=== PATIENT | female | born 1940 | race Asian ===

== ENCOUNTER 2016-04-23 01:27 | Observation (INO) | payer MEDICARE, OTHER ==
--- NOTE | 2016-04-23 03:15 | ER Document Report ---
ED Cardiac - General Chief Complaint: Chest Pain Stated Complaint: CHEST PAIN Notes: The patient is a 76-year-old female, past medical history hypothyroidism, former smoker, presents with 2 hours of left-sided chest pressure that radiated into her left shoulder while she was at rest. She had this about 6 months ago that resolved after a baby aspirin. She took 162 mg aspirin at home earlier tonight and she is no longer having any chest pain. She has never received a stress test. Denies shortness of breath, numbness, tingling, back pain, leg swelling, fevers, cough, nausea, vomiting or abdominal pain. TRAVEL OUTSIDE OF THE [place] IN LAST 30 DAYS: No - Related Data Allergies/Adverse Reactions: acetaminophen [From Percocet] Allergy (Mild, Verified 10/13/14 09:25) Vomiting oxycodone HCl [From Percocet] Adverse Reaction (Mild, Verified 04/23/16 03:20) Vomiting Home Medications: Current Home Medications Levothyroxine Sodium [Synthroid 0.075 mg Tablet] 0.075 mg PO DAILY 04/23/16 [ History] Past Medical History - General Information source: Patient - Social History Smoking Status: Former Smoker Chew tobacco use (# tins/day): No Frequency of alcohol use: Occasional Drug Abuse: None Family History: Reviewed & Not Pertinent Patient has suicidal ideation: No Patient has homicidal ideation: No - Past Medical History Cardiac Medical History: Denies: Hx Coronary Artery Disease, Hx Heart Attack, Hx Hypertension Pulmonary Medical History: Denies: Hx Asthma, Hx Bronchitis, Hx COPD, Hx Pneumonia Neurological Medical History: Denies: Hx Cerebrovascular Accident, Hx Seizures Renal/ Medical History: Denies: Hx Peritoneal Dialysis Musculoskeltal Medical History: Denies Hx Arthritis - Immunizations Hx Diphtheria, Pertussis, Tetanus Vaccination: Yes Hx Pneumococcal Vaccination: 05/27/13 Review of Systems - Review of Systems Notes: REVIEW OF SYSTEMS: CONSTITUTIONAL: -fevers, -chills EENT: -eye pain, -difficulty swallowing, -nasal congestion CARDIOVASCULAR: +chest pain, -syncope. RESPIRATORY: -cough, -SOB GASTROINTESTINAL: -abdominal pain, - nausea, -vomiting, -diarrhea GENITOURINARY: -dysuria, -hematuria MUSCULOSKELETAL: -back pain, -neck pain SKIN: -rash or skin lesions. HEMATOLOGIC: -easy bruising or bleeding. LYMPHATIC: -swollen, enlarged glands. NEUROLOGICAL: -altered mental status or loss of consciousness, -headache, - neurologic symptoms PSYCHIATRIC: -anxiety, -depression. ALL OTHER SYSTEMS REVIEWED AND NEGATIVE. Physical Exam - Vital signs Vitals: Resp Pulse Ox 12 98 04/23/16 03:00 04/23/16 03:00 - Notes Notes: PHYSICAL EXAMINATION: GENERAL: Well-appearing, well-nourished and in no acute distress. HEAD: Atraumatic, normocephalic. EYES: Pupils equal round and reactive to light, extraocular movements intact, sclera anicteric, conjunctiva are normal. ENT: nares patent, oropharynx clear without exudates. Moist mucous membranes. NECK: Normal range of motion, supple without lymphadenopathy LUNGS: Breath sounds clear to auscultation bilaterally and equal. No wheezes rales or rhonchi. HEART: Regular rate and rhythm without murmurs ABDOMEN: Soft, nontender, normoactive bowel sounds. No guarding, no rebound. No masses appreciated. EXTREMITIES: Normal range of motion, no pitting or edema. No cyanosis. NEUROLOGICAL: Cranial nerves grossly intact. Normal speech, normal gait. Normal sensory, motor, and reflex exams. PSYCH: Normal mood, normal affect. SKIN: Warm, Dry, normal turgor, no rashes or lesions noted. Course - Re-evaluation Re-evalutation: Pt chest pain free. She already took aspirin at home prior to arrival. EKG does not show any signs of ischemia at this time. HEART score 5 (2 for age, 1 for risk factors, 2 for concerning story). Symptoms atypical for aortic dissection or PE. With elevated HEART score and no prior provocation studies, pt will require Observation for repeat troponins and further evaluation of her chest pain. 04/23/16 04:19 Pt's first troponin negative. Dr. Hunter will call back when he is ready for admission. 04/23/16 05:[address] Hunter and he has accepted the patient as Tele Obs. - Vital Signs Vital signs: Temp Pulse Resp BP Pulse Ox 11 L 127/59 H 98 04/23/16 05:01 04/23/16 05:01 04/23/16 05:01 - Laboratory Result Diagrams: 04/23/16 03:04 04/23/16 03:04 Laboratory results interpreted by me: 04/23/16 03:04 Chloride 108 H Glucose 119 H Calcium 10.9 H - Diagnostic Test Radiology reviewed: Image reviewed, Reports reviewed Radiology results interpreted by me: CXR: NAD - EKG Interpretation by Me EKG shows normal: Sinus rhythm, Intervals, QRS Complexes, ST-T Waves [employer]/QRS: Left axis deviation Voltage: Consistant with LVH Discharge - Discharge Clinical Impression: Chest pain Qualifiers: Chest pain type: unspecified Qualified Code(s): R07.9 - Chest pain, unspecified Condition: Stable Disposition: ADMITTED OBSERVATION Admitting Provider: [facility] Admitted: Telemetry
[2016-04-23 03:17] LABS: ABSOLUTE EOSINOPHILS # (AUTO) 0.2 10^3/uL (0.0-0.6); ABSOLUTE LYMPHOCYTES (AUTO) 1.9 10^3/uL (0.5-4.7); ABSOLUTE MONOCYTES (AUTO) 0.4 10^3/uL (0.1-1.4); ABSOLUTE NEUT (AUTO) 3.1 10^3/uL (1.7-8.2); BASOPHILS % (AUTO) 0.7 % (0-2); HEMATOCRIT 41.2 % (36.0-47.0); HEMOGLOBIN 14.2 g/dL (12.0-15.5); HGB HCT DIFFERENCE 1.4; LYMPHOCYTES % (AUTO) 34.1 % (13-45); MEAN CORPUSCULAR HEMOGLOBIN 32.5 pg (27.0-33.4); MEAN CORPUSCULAR HGB CONC 34.5 g/dL (32.0-36.0); MEAN CORPUSCULAR VOLUME 94 fl (80-97); MONOCYTES % (AUTO) 6.9 % (3-13); RED BLOOD COUNT 4.37 10^6/uL (3.72-5.28); RED CELL DISTRIBUTION WIDTH 12.7 % (11.5-14.0); SEGMENTED NEUTROPHILS % (AUTO) 55.3 % (42-78); WHITE BLOOD COUNT 5.5 10^3/uL (4.0-10.5)
[2016-04-23 03:52] LABS: ALANINE AMINOTRANSFERASE 42 U/L (9-52); ALBUMIN 4.2 g/dL (3.5-5.0); ALKALINE PHOSPHATASE 101 U/L (38-126); ANION GAP 12 (5-19); ASPARTATE AMINO TRANSFERASE 32 U/L (14-36); BILIRUBIN,TOTAL 0.5 mg/dL (0.2-1.3); BLOOD UREA NITROGEN 18 mg/dL (7-20); CALCIUM 10.9 mg/dL (8.4-10.2); CARBON DIOXIDE 23 mmol/L (22-30); CHLORIDE 108 mmol/L (98-107); CREATINE KINASE 80 U/L (30-135); CREATININE RESULT 0.55 mg/dL (0.52-1.25); GLUCOSE 119 mg/dL (75-110); POTASSIUM 4.7 mmol/L (3.6-5.0); SODIUM 142.8 mmol/L (137-145); TOTAL PROTEIN 7.1 g/dL (6.3-8.2)
[2016-04-23] MEDS ORDERED: PROMETHAZINE HCL INJ 25 MG/1 ML VIAL IV PRN (07:36)
[2016-04-23] MEDS ORDERED: ACETAMINOPHEN 325 MG TABLET PO PRN (09:03)
--- NOTE | 2016-04-23 09:08 | PDOC H&P ---
History of Present Illness Admission Date/PCP: 04/23/16 05:15 MARTHA ROBERTS MD Patient complains of: Chest pain History of Present Illness: MICKEY GRAHAM is a 76 year old [place] female with underlying hypothyroidism, but no personal or family history of coronary artery disease who presents to the emergency room for evaluation of above complaint. She describes the onset while walking about her house of approximately a two- hour episode of left-sided chest pressure that radiated into her left shoulder. Resolved after she took 2 baby aspirin. No associated symptoms such as nausea vomiting, diaphoresis, numbness, or shortness of breath. Similar somewhat milder episode 6 months ago that resolved after a single baby aspirin. Negative exercise treadmill study several years ago. No history of pulmonary embolus or DVT. No recent long trip with prolonged inactivity, or unusual lower extremity swelling or tenderness. Currently resting quietly, chest pain-free. Patient has been discussed with emergency room physician who evaluated the patient. . [facility] and are reviewed. X-ray summary results are listed below, with full report(s) reviewed. . EKG reviewed. 09/30/2014 Social history/personal habits: . Has children. 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 A rather physically and mentally active individual. No tobacco use since 1995. One glass of wine per day. No illicit drug use. Allergies/adverse reactions are listed in [facility] and are reviewed. Home medications are reviewed by discussion with patient and have been reconciled by nursing staff in [facility]. Home medications initially autopopulated into [facility] may not accurately reflect patient's true medications, dosages, and/or frequencies. REVIEW OF SYSTEMS: Constitutional: No fever or chills. Eyes: No current vision complaints. ENT: No swallowing problems or complaints. No hearing problems or complaints. Pulmonary: No current complaints. Cardiovascular: See history and present illness. Gastrointestinal: No current complaints, including nausea or vomiting. Skin: No current complaints, including rashes. Hematologic: No unusual easy bruising or bleeding. Neurologic: No current complaints, including numbness or tingling. Musculoskeletal: Occasional mild joint pain. No specific diagnosis of arthritis. Psychiatric: Mild occasional Anxiety depression; denies suicidal or homicidal ideation. Endocrine: No current complaints, including polyuria. Genitourinary: No current complaints, including dysuria. PHYSICAL EXAMINATION: Neither height nor weight nor temperature are recorded on the chart. Skin is normothermic. Pressure 126/62. Pulse 72 and regular. 99% saturation on room air. Respirations are 21 and unlabored. Female emergency room nurse Norma is present. Well-nourished well-developed elderly oriental female, appearing approximately her stated age. Pleasant awake alert and cooperative. No obvious distress other than perhaps mildly anxious. A rather stoic individual. Skin is warm and dry. No grossly obvious evidence of rash in areas of skin examined. No subcutaneous nodules palpated. ENT: Hearing grossly normal to normal conversation. Tongue midline on protrusion pink and slightly moist. Eyes: No scleral icterus. Pupils equal and reactive to light at 4 mm. [place] conjunctivae. Neck is supple and nontender to gentle active range of motion and palpation. Midline trachea. No palpable thyroid nodule mass enlargement or tenderness. Lymphatic: No palpable cervical or clavicular nodes. Neck and lymphatic exams limited by patient body habitus. Psychiatric: Reasonable insight into acute and chronic medical issues. Oriented to time location and why here. Lungs: Auscultation reveals clear and equal breath sounds bilaterally. No use of accessory respiratory muscles. Cardiovascular: Heart regular rate and rhythm, without gallop murmur or rub. No carotid or abdominal aortic bruits. No ankle or pedal edema. Faintly palpable dorsalis pedis pulses. Abdomen: soft, , slightly distended nontender with positive bowel sounds. Unable to adequately evaluate abdomen for masses or organomegaly due to distention. Compression of neither her upper abdomen nor her sternum reproduces her previously noted chest discomfort. Extremities: Feet are warm and dry. No calf tenderness to compression. No grossly obvious visual evidence of calf swelling. Gentle manipulation of lower extremities fails to reveal any obvious evidence of injury or instability to knees hips or ankles. Neurologic: Moves upper extremities grossly normally. Patellar reflexes absent. Absent Babinski. Light touch is intact at feet. Dorsiflexion and plantarflexion of feet 5 / 5 and symmetric. Past Medical History Cardiac Medical History: Denies: Coronary Artery Disease, Myocardial Infarction, Hypertension Pulmonary Medical History: Denies: Asthma, Bronchitis, Chronic Obstructive Pulmonary Disease (COPD), Pneumonia Neurological Medical History: Denies: Seizures Musculoskeltal Medical History: Denies: Arthritis Hematology: Denies: Anemia Past Surgical History Past Surgical History: Reports: Appendectomy, Tubal Ligation Social History Information Source: Patient, Emergency Med Personnel, [facility] Records Lives with: Spouse/Significant other Smoking Status: Former Smoker Frequency of Alcohol Use: Social Drugs: None - Advance Directive Resuscitation Status: Full Code Surrogate healthcare decision maker:: Family History Family History: Reviewed & Not Pertinent Parental Family History Reviewed: Yes Children Family History Reviewed: Yes Sibling(s) Family History Reviewed.: Yes Medication/Allergy Home Medications: Levothyroxine Sodium [Synthroid 0.075 mg Tablet] 0.075 mg PO DAILY 04/23/16 Allergies/Adverse Reactions: acetaminophen [From Percocet] Allergy (Mild, Verified 10/13/14 09:25) Vomiting oxycodone HCl [From Percocet] Adverse Reaction (Mild, Verified 04/23/16 03:20) Vomiting Physical Exam Vital Signs: Temp Pulse Resp BP Pulse Ox 15 126/62 H 96 04/23/16 06:30 04/23/16 06:01 04/23/16 06:30 Results Impressions: Chest X-Ray 04/23/16 01:40 IMPRESSION: No acute cardiopulmonary findings. Assessment & Plan - Diagnosis (1) Chest pain Qualifiers: Chest pain type: unspecified Qualified Code(s): R07.9 - Chest pain, unspecified Is this a current diagnosis for this admission?: YesPlan: Patient will be placed in observation bed under chest pain protocol. Patient understands to notify staff should chest pain recur. Serial troponin's . Repeat EKG. lipid panel. I have strongly urged patient to be careful getting out of bed, to avoid a fall with injury. Knee high SCDs for DVT prophylaxis. Along with subcutaneous Lovenox . Impression and plans were discussed with patient, who concurs. Time spent in evaluation and management of patient: 61 minutes. (2) DVT prophylaxis Is this a current diagnosis for this admission?: Yes (3) Hypothyroid Qualifiers: Hypothyroidism type: unspecified Qualified Code(s): E03.9 - Hypothyroidism, unspecified Is this a current diagnosis for this admission?: YesPlan: TSH is pending.Resume home medications as appropriate once these have been reviewed.
[2016-04-23 09:26] LABS: CHOLESTEROL 240.93 mg/dL (0-200); Direct HDL 58 mg/dL (>40); TRIGLYCERIDES 183 mg/dL (<150)
[2016-04-23 09:37] LABS: DIRECT LDL 170 mg/dL (<100)
[2016-04-23 09:46] LABS: VLDL CHOLESTEROL 36.6 mg/dL (10-31)
[2016-04-23] MEDS ORDERED: ENOXAPARIN SODIUM INJ 40 MG/0.4 ML DISP.SYRIN SUBCUT ONE (11:00)
[2016-04-23 11:01] LABS: APPEARANCE,URINE CLEAR; BILIRUBIN,URINE NEGATIVE (NEGATIVE); GLUCOSE, URINE NEGATIVE (NEGATIVE); KETONES,URINE NEGATIVE (NEGATIVE); LEUKOCYTE ESTERASE,URINE NEGATIVE (NEGATIVE); NITRITE,URINE NEGATIVE (NEGATIVE); PROTEIN,URINE NEGATIVE (NEGATIVE); URINE SPECIFIC GRAVITY 1.019; UROBILINOGEN,URINE NEGATIVE mg/dL (<2.0)
[2016-04-23] MEDS ORDERED: REGADENOSON INJ 0.4 MG/5 ML DISP.SYRIN IV ONE (11:29)
[2016-04-23] MEDS ORDERED: AMINOPHYLLINE INJ/PF 250 MG/10 ML SDV IV ONE (11:29)
[2016-04-23] MEDS: ASPIRIN 81 MG TABLET, ENT COATED PO SCH (11:39)
[2016-04-23] MEDS: LEVOTHYROXINE SODIUM 0.075 MG TABLET PO SCH (11:40)
--- NOTE | 2016-04-23 11:47 | PDOC PROGRESS REPORT ---
Subjective Progress Note for:: 04/23/16 Subjective:: The patient was seen on rounds. Patient denies any nausea, vomiting, diarrhea, dizziness. No specific reoccurrence of chest pain. The patient notes nocturnal symptoms. Has not had a recent cardiac work-up in spite of mixed hyperlipidemia. Discussed the case with Cardiology who has agreed to see the patient Physical Exam Vital Signs: Temp Pulse Resp BP Pulse Ox 15 126/62 H 96 04/23/16 06:30 04/23/16 06:01 04/23/16 06:30 Intake & Output 04/21/16 04/22/16 04/23/16 23:59 23:59 23:59 Weight 67.7 kg General appearance: PRESENT: no acute distress, well-developed, well-nourished Head exam: PRESENT: atraumatic, normocephalic Eye exam: PRESENT: conjunctiva pink, EOMI, PERRLA. ABSENT: scleral icterus Ear exam: PRESENT: normal external ear exam Mouth exam: PRESENT: moist, tongue midline Neck exam: ABSENT: carotid bruit, JVD, lymphadenopathy, thyromegaly Respiratory exam: PRESENT: clear to auscultation jaspreet. ABSENT: rales, rhonchi, wheezes Cardiovascular exam: PRESENT: RRR. ABSENT: diastolic murmur, rubs, systolic murmur Pulses: PRESENT: normal dorsalis pedis pul Vascular exam: PRESENT: normal capillary refill GI/Abdominal exam: PRESENT: normal bowel sounds, soft. ABSENT: distended, guarding, mass, organolmegaly, rebound, tenderness Rectal exam: PRESENT: deferred Extremities exam: PRESENT: full ROM. ABSENT: calf tenderness, clubbing, pedal edema Neurological exam: PRESENT: alert, awake, oriented to person, oriented to place , oriented to time, oriented to situation, CN II-XII grossly intact. ABSENT: motor sensory deficit Psychiatric exam: PRESENT: appropriate affect, normal mood. ABSENT: homicidal ideation, suicidal ideation Skin exam: PRESENT: dry, intact, warm. ABSENT: cyanosis, rash Results Laboratory Results: 04/23/16 04/23/16 04/23/16 08:38 08:38 10:30 Triglycerides 183 H Cholesterol 240.93 H LDL Cholesterol Direct 170 H VLDL Cholesterol 36.6 H HDL Cholesterol 58 TSH 0.49 Urine Color YELLOW Urine Appearance CLEAR Urine pH 6.0 Ur Specific [place] 1.019 Urine Protein NEGATIVE Urine Glucose (UA) NEGATIVE Urine Ketones NEGATIVE Urine Blood NEGATIVE Urine Nitrite NEGATIVE Ur Leukocyte Esterase NEGATIVE Urine WBC (Auto) 0 Urine RBC (Auto) 3 04/23/16 08:38 Troponin I 0.028 Impressions: Chest X-Ray 04/23/16 01:40 IMPRESSION: No acute cardiopulmonary findings. Assessment & Plan - Diagnosis (1) Chest pain Qualifiers: Chest pain type: unspecified Qualified Code(s): R07.9 - Chest pain, unspecified Is this a current diagnosis for this admission?: YesPlan: Given findings on EKG and patient's symptoms as well as other risk factors, will consult Cardiology. Discussed possible stress test and differentials. Patient is anxious. (2) Hypothyroid Qualifiers: Hypothyroidism type: unspecified Qualified Code(s): E03.9 - Hypothyroidism, unspecified Is this a current diagnosis for this admission?: YesPlan: Continue home meds (3) Hyperlipidemia Qualifiers: Hyperlipidemia type: mixed hyperlipidemia Qualified Code(s): E78.2 - Mixed hyperlipidemia Is this a current diagnosis for this admission?: YesPlan: Will add statin (4) DVT prophylaxis Is this a current diagnosis for this admission?: Yes - Time Time Spent with patient: 35 or more minutes Medications reviewed and adjusted accordingly: Yes Anticipated discharge: Home Within: within 24 hours
--- NOTE | 2016-04-23 12:31 | PDOC CONSULTATION ---
Consultation Consult Date: 04/23/16 Attending physician:: KORI URIAS Consult reason:: Chest pain and palpitations History of Present Illness Admission Date/PCP: 04/23/16 07:30 MARTHA ROBERTS MD Patient complains of: Chest pains and palpitations History of Present Illness: MICKEY GRAHAM is a 76 year old [place] female with underlying hypothyroidism, but no personal or family history of coronary artery disease who presents to the emergency room for evaluation of above complaint. Patient was subsequently admitted and I was asked to consult. She describes the onset while walking about her house of approximately a two- hour episode of left-sided chest pressure that radiated into her left shoulder. Resolved after she took 2 baby aspirin. No associated symptoms such as nausea vomiting, diaphoresis, numbness, or shortness of breath. Similar somewhat milder episode 6 months ago that resolved after a single baby aspirin. Negative exercise treadmill study several years ago. No history of pulmonary embolus or DVT. No recent long trip with prolonged inactivity, or unusual lower extremity swelling or tenderness. Currently resting quietly, chest pain-free. Patient denied any prior history of myocardial infarction, angina, congestive heart failure. Patient does describe history of nocturnal palpitations. Patient also describes history of daytime fatigue and tiredness. Patient does have a history of intermittent snoring. Above history was supplemented and confirmed. I agree with above history. Past Medical History Cardiac Medical History: Denies: Coronary Artery Disease, Myocardial Infarction, Hypertension Pulmonary Medical History: Denies: Asthma, Bronchitis, Chronic Obstructive Pulmonary Disease (COPD), Pneumonia Neurological Medical History: Denies: Seizures Musculoskeltal Medical History: Denies: Arthritis Hematology: Denies: Anemia Past Surgical History Past Surgical History: Reports: Appendectomy, Tubal Ligation Social History Information Source: Patient Lives with: Spouse/Significant other Smoking Status: Former Smoker Frequency of Alcohol Use: Social Drugs: None - Advance Directive Resuscitation Status: Full Code Surrogate healthcare decision maker:: insists surrogate decision-maker Family History Family History: Reviewed & Not Pertinent Parental Family History Reviewed: Yes Children Family History Reviewed: Yes Sibling(s) Family History Reviewed.: Yes - Negative for premature coronary artery disease or sudden cardiac in the family amongst first degree relatives. Medication/Allergy Home Medications: Levothyroxine Sodium [Synthroid 0.075 mg Tablet] 0.075 mg PO DAILY 04/23/16 Allergies/Adverse Reactions: oxycodone HCl [From Percocet] Adverse Reaction (Mild, Verified 04/23/16 03:20) Vomiting Review of Systems Review of Systems: Please see history of present illness and past medical history as wall. Constitutional: No fever or chills reported. Head : No recent chronic headaches, recent head injury. Eyes: No recent eye pain, diplopia, redness, discharge, acute visual changes. Ears: No recent chronic ear pain, acute hearing loss, ear discharge. Oral cavity: No recent ulcerations, bleeding, oral cavity discomfort. Neck: No recent acute neck pain reported. Hematologic: No recent easy bruising or bleeding or hematologic malignancy reported. Lymphatic: No recent lymphatic malignancy, chronic lymphadenopathy reported yet Cardiovascular system review: See history of present illness. Respiratory system review: No recent chronic cough, hemoptysis, blood clots in the lungs reported. Mild Shortness of breath on exertion Gastrointestinal system review: Negative for any recent acute or chronic abdominal pain, hematemesis, melena, recent change in bowel habits. Genitourinary system review: No recent acute or chronic hematuria, flank pain, UTI etc. reported. Skin system review: Negative for any recent abnormal bruising, no rash, no pruritus reported. Neurologic: No prior history of strokes, mini strokes, seizure disorder. Psychologic: No history of major psychosis or major depression reported. Musculoskeletal: Minor aches and pains reported. No acute joint swelling reported. Endocrine: No recent polyuria, polydipsia, recent heat or cold intolerance. Physical Exam Vital Signs: Temp Pulse Resp BP Pulse Ox 75 18 130/52 H 96 04/23/16 12:15 04/23/16 12:15 04/23/16 12:15 04/23/16 12:17 Intake & Output 04/22/16 04/23/16 04/24/16 06:59 06:59 06:59 Weight 67.7 kg Exam: GENERAL: well-nourished and in no acute distress. Alert and oriented x3 HEAD: Atraumatic, normocephalic. EYES: Pupils equal round and reactive to light, extraocular movements intact, sclera anicteric, conjunctiva are normal. ENT: TMs normal, nares patent, oropharynx clear without exudates. Moist mucous membranes. No oral ulcerations or bleeding gums noted NECK: supple without lymphadenopathy. Trachea is central. No cervical or axillary lymphadenopathy noted. Carotids are 2+, JVD WNL LUNGS: Respiration seems nonlabored, no significant accessory muscle action noted. Breath sounds clear to auscultation bilaterally and equal noted. No wheezes rales or rhonchi noted. No significant dullness noted on percussion. CHEST: Palpation of the chest wall shows no significant chest wall tenderness. No other significant abnormalities noted. 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 ABDOMEN: Soft, no significant tenderness appreciated, normoactive bowel sounds. No guarding, no rebound. No rigidity noted . No masses appreciated. EXTREMITIES: Pedal pulses are 1-2+, no calf tenderness noted. No clubbing or cyanosis.trace to 1+ pedal edema noted NEUROLOGICAL: Focused neurological exam showed no significant neurologic deficit. Normal speech, no focal weakness appreciated. PSYCH: Normal mood, normal affect. Judgment and insight within normal limits. SKIN: No significant ecchymosis, rash, ulcerations or signs of pruritus noted. MUSCULOSKELETAL EXAM: No significant joint swelling noted. Results Laboratory Results: 04/23/16 04/23/16 04/23/16 08:38 08:38 10:30 Triglycerides 183 H Cholesterol 240.93 H LDL Cholesterol Direct 170 H VLDL Cholesterol 36.6 H HDL Cholesterol 58 TSH 0.49 Urine Color YELLOW Urine Appearance CLEAR Urine pH 6.0 Ur Specific [place] 1.019 Urine Protein NEGATIVE Urine Glucose (UA) NEGATIVE Urine Ketones NEGATIVE Urine Blood NEGATIVE Urine Nitrite NEGATIVE Ur Leukocyte Esterase NEGATIVE Urine WBC (Auto) 0 Urine RBC (Auto) 3 04/23/16 08:38 Troponin I 0.028 EKG Comments: Sinus rhythm, no acute ST-T wave changes noted Impressions: Chest X-Ray 04/23/16 01:40 IMPRESSION: No acute cardiopulmonary findings. Assessment & Plan - Diagnosis (1) Chest pain Qualifiers: Chest pain type: unspecified Qualified Code(s): R07.9 - Chest pain, unspecified Is this a current diagnosis for this admission?: Yes (2) Hyperlipidemia Qualifiers: Hyperlipidemia type: mixed hyperlipidemia Qualified Code(s): E78.2 - Mixed hyperlipidemia Is this a current diagnosis for this admission?: Yes (3) Hypothyroid Qualifiers: Hypothyroidism type: unspecified Qualified Code(s): E03.9 - Hypothyroidism, unspecified Is this a current diagnosis for this admission?: Yes (4) Dyspnea Qualifiers: Dyspnea type: dyspnea on exertion Qualified Code(s): R06.09 - Other forms of dyspnea Is this a current diagnosis for this admission?: Yes - Notes Notes: Chest pain: Patient has some typical and atypical features of chest pain. Cardiac enzymes so far has been negative. Electrocardiogram did not show any definitive ST segment changes. Multiple differential diagnoses exist in this patient. In descending order of probability this includes underlying coronary artery disease, gastroesophageal reflux, musculoskeletal pain, referred pain from elsewhere, anxiety panic disorder etc.Patient has significant cardiac risk factors, which indicates that there is a intermediate probability of chest discomfort coming from underlying CAD. Feel that it would need to be evaluated further. Discussed evaluation to assess this. In this regard risk benefits of nuclear stress test and other alternative processes were discussed in detail. The patient prefers to undergo nuclear stress test. The small risk of radiation , myocardial infarction, , cardiac arrhythmias, respiratory distress etc. were discussed. Patient understood the risks and gave informed consent. Nuclear stress test was therefore scheduled. For risk evaluation, patient is also being scheduled for a 2-D echocardiogram. Patient questions were answered. Dyslipidemia: Patient noted to have dyslipidemia. LDL goal is less than 70. Recommend statin therapy at least intermediate or high dose, of high potency status. Periodic lipid panel and liver panel is indicated. Patient to report any significant muscle discomfort or other side effects. Hypothyroidism: Patient is status post total thyroidectomy. Continue with replacement therapy. Palpitations: Elevation describes nocturnal palpitations. Patient has certain facial features and oropharyngeal exam indicative of possible underlying sleep apnea syndrome. Patient will benefit from a sleep study. This was discussed. Dyspnea: Exact etiology not clear. To be evaluated further with a nuclear stress test and a 2-D echo. We'll also get a CTA of the chest. - Time Time Spent: 30 to 50 Minutes - CODE STATUS was discussed, patient remains full code. Surrogate decision-maker unchanged. Multiple medical problems were addressed.More than 50% of the time spent coordinating care, discussing management plans with involved caregivers. Management plans discussed with involved personnels. Medical decision making was of moderate complexity.
[2016-04-23] MEDS: LANSOPRAZOLE 30 MG TAB.RAP.DR PO SCH (17:20)
--- NOTE | 2016-04-23 17:40 | EKG REPORT ---
SEVERITY:- ABNORMAL ECG - SINUS TACHYCARDIA LEFT AXIS DEVIATION LEFT VENTRICULAR HYPERTROPHY CONSIDER ANTERIOR INFARCT : Confirmed by: Chanelle Mccurdy MD 23-Apr-2016 17:39:29
[2016-04-23] MEDS ORDERED: ATORVASTATIN CALCIUM 40 MG TABLET PO SCH (22:00)
[2016-04-24] MEDS: LANSOPRAZOLE 30 MG TAB.RAP.DR PO SCH (05:19)
[2016-04-24] MEDS ORDERED: ENOXAPARIN SODIUM INJ 40 MG/0.4 ML DISP.SYRIN SUBCUT SCH (08:00)
--- NOTE | 2016-04-24 08:01 | EKG REPORT ---
SEVERITY:- ABNORMAL ECG - SINUS RHYTHM LEFT VENTRICULAR HYPERTROPHY : Confirmed by: Neto Plaza MD 24-Apr-2016 08:01:10
--- NOTE | 2016-04-24 12:30 | DRAGON STRESS TEST REPORT ---
INTRAVENOUS LEXISCAN CARDIOLITE STRESS TEST USING SINGLE PHOTON EMMISION COMPUTERIZED TOMOGRAPHIC. DATE OF PROCEDURE: April 24, 2016 INDICATION : Chest pain CARDIAC RISK FACTORS: Dyslipidemia RESTING EKG: Sinus rhythm without any baseline ST segment changes STRESS EKG: No significant changes noted with LexiScan bolus REASON FOR TERMINATION: Protocol. PROCEDURE REPORT: Baseline heart rate 65 beats per minute with blood pressure of 136/60. Patient had no significant complaints. Heart rate at 2 minutes post bolus 93 with a blood pressure of 166/58. 3 minutes post bolus heart rate 90 with blood pressure of 158/59. No significant EKG changes were noted. Patient had no significant complaints during the procedure or postprocedure. CONCLUSIONS: Normal EKG and hemodynamic response to IV LexiScan. NUCLEAR DATA: At rest the patient was given 10.52 millicuries of technetium 99 sestamibi injected intravenously. As per protocol rest gated SPECT images were obtained. Subsequently the patient was given intravenous LexiScan at a dose of 0.4 mg in 5 mL intravenously, followed by flush with normal saline. Subsequently the stress dose of 32.4 millicuries of technetium 99 sestamibi was injected intravenously. As per protocol stress gated images were obtained. NUCLEAR INTERPRETATION: Both raw and processed data were used for interpretation. Visual, qualitative, computer-generated quantitative data was used. There was good myocardial uptake of technetium compound. Motion artifact and soft tissue attenuations were noted. Increased visceral uptake was noted. No definitive areas of transient perfusion defect noted. No definitive areas of fixed perfusion defect or scars noted. EKG gated imaging showed LV EF at 78 %, rest and stress gated EF similar visually. T. I D. ratio was 1.15. Lung heart ratio noted to be within normal limits 0.36. No significant extracardiac and abnormal radiotracer activities were noted. RV free wall uptake was noted to be within normal limits. IMPRESSION: Also refer to comments under nuclear interpretation. Also test results needs to be interpreted in the context of pretest probability. 1. There is no definitive scintigraphic evidence of LexiScan induced myocardial ischemia. 2. There is no definitive scintigraphic evidence of myocardial infarction/scar. 3. EKG gated imaging shows left ejection fraction of approximately 78 %. 4. Clinical correlation requested as occasionally single vessel disease or balanced ischemia could be missed. In approximately 10% of the cases Lexiscan may not cause adequate vasodilatory stress. RECOMMENDATIONS: Aggressive risk factor modification, medical therapy. Clinical correlation with echocardiogram derived ejection fraction. Inability to exercise by itself can lead to increased cardiovascular event risks. Consider cardiology consultation if clinically indicated. I AM AVAILABLE FOR CARDIOLOGY CONSULTATION AND FOLLOWUP IF REQUESTED BY PMD Jonh Kenny M.D., [facility] Associate Professor Of Psychology electrician machine shop, Board certified in cardiovascular diseases, Nuclear cardiology, Echocardiography Cardiac CT and cardiac MRI Ph. [phone] [facility]
--- NOTE | 2016-04-24 12:34 | XCELERA REPORT ---
[address] [address] Transthoracic Echocardiogram Report Name: MICKEY GRAHAM Age: 76 yrs Gender: Female : 1940 Patient Status: Inpatient Patient Location: [id number] Study Date: 04/24/2016 11:01 AM Height: 62 in Weight: 149 lb BSA: 1.7 m2 Procedure: A complete two-dimensional transthoracic echocardiogram was performed (2D, M-mode, spectral and color flow Doppler). The study was technically adequate with some images being suboptimal in quality. Reason For Study: chest pain and palpitations Ordering Physician: JONH MACKEY Performed By: Jackie Smith Interpretation Summary The left ventricular ejection fraction is normal. There is borderline concentric left ventricular hypertrophy. Doppler measurements suggest pseudonormalized left ventricular relaxation, which is associated with grade II/IV or mild to moderate diastolic dysfunction The left ventricle is grossly normal size. Wall motion cannot be accurately commented on, but no definite regional wall motion abnormalities noted. The right ventricular systolic function is normal. The right atrium is normal in size The left atrium is mildly dilated. There is a mild amount of mitral regurgitation There is no mitral valve stenosis. There is a mild amount of aortic regurgitation There is no aortic valve stenosis There is a trace or physiologic amount of tricuspid regurgitation Tricuspid regurgitation jet envelope not well defined to measure RV systolic pressure accurately. There is no pericardial effusion. MMode/2D Measurements \T\ Calculations RVDd: 2.9 cm LVIDd: 3.7 cm FS: 36.7 % Ao root diam: 3.0 cm IVSd: 1.1 cm LVIDs: 2.3 cm EDV(Teich): 56.3 ml LVPWd: 1.00 cm ESV(Teich): 18.3 ml Ao root area: 6.9 cm2 EF(Teich): 67.5 % LA dimension: 3.8 cm Doppler Measurements \T\ Calculations MV E max jazmyn: MV P1/2t max jazmyn: Ao V2 max: AI max jazmyn: 77.5 cm/sec 78.5 cm/sec 113.3 cm/sec 451.1 cm/sec MV A max jazmyn: MV P1/2t: 73.7 msec Ao max PG: AI max P.4 cm/sec 5.1 mmHg 81.4 mmHg MV E/A: 0.94 MVA(P1/2t): 3.0 cm2 AI dec slope: MV dec slope: 312.0 cm/sec2 210.2 cm/sec2 MV dec time: AI P1/2t: 0.25 sec 628.6 msec LV V1 max PG: PA V2 max: TR max jazmyn: 4.0 mmHg 87.4 cm/sec 224.1 cm/sec LV V1 max: PA max P.1 mmHg TR max P.2 cm/sec 20.1 mmHg Left Ventricle The left ventricle is grossly normal size. There is borderline concentric left ventricular hypertrophy. The left ventricular ejection fraction is normal. Doppler measurements suggest pseudonormalized left ventricular relaxation, which is associated with grade II/IV or mild to moderate diastolic dysfunction. Wall motion cannot be accurately commented on, but no definite regional wall motion abnormalities noted. Right Ventricle The right ventricle is grossly normal size. There is normal right ventricular wall thickness. The right ventricular systolic function is normal. Atria The right atrium is normal in size. The left atrium is mildly dilated. Interarterial septum not well visualized and not well dopplered. Cannot comment on ASD/PFO presence. Mitral Valve The mitral valve is grossly normal. There is no mitral valve stenosis. There is a mild amount of mitral regurgitation. Aortic Valve The aortic valve is mildly calcified. There is no aortic valve stenosis. There is a mild amount of aortic regurgitation. Tricuspid Valve The tricuspid valve is not well visualized, but is grossly normal. There is no tricuspid stenosis. There is a trace or physiologic amount of tricuspid regurgitation. Tricuspid regurgitation jet envelope not well defined to measure RV systolic pressure accurately. Pulmonic Valve The pulmonic valve is not well visualized. Great Vessels The aortic root is not well visualized but is probably normal size. The inferior vena cava was not well visualized. Effusions There is no pericardial effusion. : JONH MACKEY > Jonh Mackey
[2016-04-24] MEDS: LEVOTHYROXINE SODIUM 0.075 MG TABLET PO SCH (12:40)
[2016-04-24] MEDS: ASPIRIN 81 MG TABLET, ENT COATED PO SCH (12:40)
[2016-04-24 15:06] VITALS: BP 130/52
--- NOTE | 2016-04-24 20:07 | PDOC PROGRESS REPORT ---
Subjective Progress Note for:: 04/24/16 Subjective:: Patient seems to be doing better with gradual improvement. Pt is denying any chest arm or neck discomfort. Patient denying any PND, orthopnea. Patient denied any sustained palpitations, dizziness, syncope, near syncope. Patient denying any fever chills. Patient denying any other significant discomfort. Patient is maintaining sinus rhythm. Review of systems: Rest review of systems negative. Medications: Medications have been reviewed. Nuclear stress test procedure was explained to the patient in detail. Risks benefits were discussed and informed consent was obtained. Alternatives were discussed. Patient informed that based on risk factors, physical exam, lab data findings and symptoms there is at least intermediate probability of underlying CAD. Nuclear stress test procedure was therefore scheduled. Physical Exam Vital Signs: Temp Pulse Resp BP Pulse Ox 97.6 F 71 16 130/52 H 98 04/24/16 15:00 04/24/16 15:00 04/24/16 15:00 04/24/16 15:00 04/24/16 15:00 Intake & Output 04/23/16 04/24/16 04/25/16 06:59 06:59 06:59 Intake Total 443 Balance 443 Weight 67.7 kg Exam: GENERAL: well-nourished and in no acute distress. Alert and oriented x3 HEAD: Atraumatic, normocephalic. EYES: Pupils equal round and reactive to light, extraocular movements intact, sclera anicteric, conjunctiva are normal. ENT: TMs normal, nares patent, oropharynx clear without exudates. Moist mucous membranes. No oral ulcerations or bleeding gums noted NECK: supple without lymphadenopathy. Trachea is central. No cervical or axillary lymphadenopathy noted. Carotids are 2+, JVD WNL LUNGS: Respiration seems nonlabored, no significant accessory muscle action noted. Breath sounds clear to auscultation bilaterally and equal noted. No wheezes rales or rhonchi noted. No significant dullness noted on percussion. CHEST: Palpation of the chest wall shows no significant chest wall tenderness. No other significant abnormalities noted. 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 ABDOMEN: Soft, no significant tenderness appreciated, normoactive bowel sounds. No guarding, no rebound. No rigidity noted . No masses appreciated. EXTREMITIES: Pedal pulses are 1-2+, no calf tenderness noted. No clubbing or cyanosis.trace to 1+ pedal edema noted NEUROLOGICAL: Focused neurological exam showed no significant neurologic deficit. Normal speech, no focal weakness appreciated. PSYCH: Normal mood, normal affect. Judgment and insight within normal limits. SKIN: No significant ecchymosis, rash, ulcerations or signs of pruritus noted. MUSCULOSKELETAL EXAM: No significant joint swelling noted. Results Laboratory Results: 04/23/16 04/23/16 04/23/16 08:38 08:38 15:00 Troponin I 0.028 0.012 NT-Pro-B Natriuret Pep 167 Impressions: Chest X-Ray 04/23/16 01:40 IMPRESSION: No acute cardiopulmonary findings. Chest/Abdomen CTA 04/23/16 12:32 IMPRESSION: No evidence of pulmonary embolus. Thyroid Ultrasound 04/24/16 10:52 IMPRESSION: Post thyroidectomy. 7 x 5 mm nodule along the right thyroid bed could reflect residual thyroid tissue, parathyroid tissue or lymph node. Assessment & Plan - Diagnosis (1) Chest pain Qualifiers: Chest pain type: unspecified Qualified Code(s): R07.9 - Chest pain, unspecified Is this a current diagnosis for this admission?: Yes (2) Hyperlipidemia Qualifiers: Hyperlipidemia type: mixed hyperlipidemia Qualified Code(s): E78.2 - Mixed hyperlipidemia Is this a current diagnosis for this admission?: Yes (3) Hypothyroid Qualifiers: Hypothyroidism type: unspecified Qualified Code(s): E03.9 - Hypothyroidism, unspecified Is this a current diagnosis for this admission?: Yes (4) Dyspnea Qualifiers: Dyspnea type: dyspnea on exertion Qualified Code(s): R06.09 - Other forms of dyspnea Is this a current diagnosis for this admission?: Yes - Notes Notes: Chest pain: Patient claims chest pain is improved. This was evaluated with a nuclear stress test. Nuclear stress test was negative for any significant areas of ischemia or any significant areas of scar. The nuclear stress test is felt to be relatively low risk. Patient informed that occasionally single- vessel disease and balanced ischemia could be missed. Patient advised aggressive risk factor modification and medical therapy. Patient informed that further evaluation may become necessary if symptoms worsens or there is a development of new symptoms indicative of angina or angina equivalent symptom. Dyslipidemia: Patient noted to have dyslipidemia. LDL goal is less than 70. Recommend statin therapy at least intermediate or high dose, of high potency status. Periodic lipid panel and liver panel is indicated. Patient to report any significant muscle discomfort or other side effects. Dyspnea: Further evaluation will be performed as an outpatient. Currently stable. Hypothyroid state: Continue replacement therapy. 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 - Time Time with patient: 15-25 minutes - Patient was seen multiple times. Total time exceeds 40 minutes. In the morning nuclear stress test procedure, risks benefits , alternatives were discussed. Patient seen during the stress test. Patient also seen after stress test when results were discussed with the patient in detail. Patient's questions were answered. Nuclear stress test results were discussed with the patient. Patient was informed that no definitive evidence of pharmacologic stress-induced ischemia noted. No definite fixed defects were noted. Patient informed that occasionally significant single vessel disease or balanced ischemia could be missed. However based on the current study results, would recommend aggressive risk factor modification and medical therapy. It may also be worthwhile to consider evaluation or empiric management of other causes of chest pain. Should no other cause be found and if persistent in having chest pain, then cardiac catheterization should be considered. Right now , recommendations are for aggressive risk factor modification and medical management.CODE STATUS was discussed, patient remains full code. Surrogate decision-maker unchanged. Multiple medical problems were addressed.More than 50 % of the time spent coordinating care, discussing management plans with involved caregivers. Management plans discussed with involved personnels. Medical decision making was of moderate complexity.
== END 2016-04-24 15:46 | disposition home or self-care (01) ==
LOC: ER 01:27 → EH 05:15 → UNDOADMOB 05:15 → EH 07:30 → UNDOADMOB 07:30 → EH 08:27 → 4W 12:43
PROVIDERS: ADMIT Family Medicine; ATTEND Family Medicine
PROC: 3E023GC Introduction of Other Therapeutic Substance into Muscle, Percutaneous Approach (ICD-10-PCS; principal; 2016-04-23)
DX: R07.9 Chest pain, unspecified (principal); R00.2 Palpitations; E03.9 Hypothyroidism, unspecified; Z87.891 Personal history of nicotine dependence; E78.2 Mixed hyperlipidemia; R06.09 Other forms of dyspnea
CPT/HCPCS: 93005 ×2; 99285; 96372; 36415; 82550; 84443; 85025; 80053; 81001; 84484; 80061; 83880; 93306; 93017; 71020; 76536; 78452; 71275; 93010; G0378 ×3; A9500; J2785; A9270 ×4; J1650 ×2; J3490 ×2; J0280; Q9969